=== PATIENT | male | born 1960 | race African-American/Black ===

== ENCOUNTER 2020-09-17 21:51 | Inpatient (IN) | payer OTHER ==
[~2020-09-17] VITALS: Ht 180.3 cm; Wt 96.6 kg
[2020-09-17] MEDS ORDERED: ASPIRIN 81MG TABLET PO ONE (22:15)
[2020-09-17 23:12] LABS: HEMATOCRIT. 49.1 % (42.0-52.0); HEMOGLOBIN. 16.9 g/dL (14.0-18.0); MEAN CORPUSCULAR HEMOGLOBIN 31.3 pg (28.0-32.0); MEAN CORPUSCULAR VOLUME 90.8 fL (80.0-94.0); MEAN PLATELET VOLUME 9.6 fl (7.4-10.4); PLATELET 222 x1000/uL (130-400); RED CELL DISTRIBUTION WIDTH 13.4 % (11.6-14.6)
[2020-09-17 23:19] LABS: CHLORIDE 101 mEq/L (98-107)
[2020-09-17 23:20] LABS: PLATELET ESTIMATE NORMAL
[2020-09-17] MEDS ORDERED: FUROSEMIDE 100MG/10ML VIAL IVP NR (23:30)
[2020-09-18] MEDS ORDERED: ONDANSETRON HCL 4MG/2ML INJ IV NR (00:45)
[2020-09-18] MEDS ORDERED: POTASSIUM CHLORIDE INJ 40 MEQ in DEXT 5% WATER 250 ML IV ONE (01:15)
[2020-09-18] MEDS ORDERED: AZITHROMYCIN 500 MG in DEXT 5% WATER 250 ML IV SCH (01:15)
[2020-09-18] MEDS ORDERED: CEFTRIAXONE 1 G PREMIX 50 ML IV ONE (01:15)
[2020-09-18 06:00] VITALS: BP 166/104
[2020-09-18] MEDS ORDERED: MAGNESIUM/ALUMINUM HYDROXIDE/SIMETHICONE 30ML UDC PO PRN (06:45)
[2020-09-18] MEDS ORDERED: ENOXAPARIN 40MG/0.4ML SYR SUBCUT SCH (06:45)
[2020-09-18] MEDS ORDERED: IPRATROPIUM/ALBUTEROL 0.5-3(2.5)MG/3ML NEB HHN PRN (06:45)
[2020-09-18] MEDS ORDERED: DEXTROSE 50% WATER 50ML SYRINGE IV PRN (06:45)
[2020-09-18] MEDS ORDERED: CLONIDINE 0.1MG TABLET PO PRN (06:45)
[2020-09-18] MEDS ORDERED: LORAZEPAM 2MG/ML CPJ IV PRN (06:45)
[2020-09-18] MEDS ORDERED: DOCUSATE SODIUM 100MG CAPSULE PO PRN (06:45)
[2020-09-18] MEDS ORDERED: GUAIFENESIN 200MG/10ML SUGAR FREE UDC PO PRN (06:45)
[2020-09-18] MEDS ORDERED: HYDRALAZINE 20MG/ML VIAL IV PRN (06:45)
[2020-09-18] MEDS ORDERED: ACETAMINOPHEN 325MG TABLET PO PRN (06:45)
[2020-09-18] MEDS ORDERED: DIPHENHYDRAMINE 50MG/ML VIAL IV PRN (06:45)
[2020-09-18 06:52] VITALS: BP 166/104
[2020-09-18] MEDS: BLOOD SUGAR DIAGNOSTIC STRIP TEST SCH ×4 (07:39→20:51)
[2020-09-18 08:00] VITALS: BP 163/110
[2020-09-18] MEDS: INSULIN LISPRO 100 UNITS/ML SUBCUT SCH ×4 (09:42→20:51)
[2020-09-18] MEDS: ONDANSETRON HCL 4MG/2ML INJ IV PRN ×2 (10:11→16:29)
[2020-09-18] MEDS ORDERED: ENOXAPARIN 60MG/0.6ML SYR SUBCUT NR (11:00)
[2020-09-18 12:00] VITALS: BP 165/106
[2020-09-18] MEDS: SODIUM CHLORIDE 0.9% INJ 3ML FLUSH IVF SCH ×2 (14:00→20:51)
[2020-09-18 14:42] LABS: T4 FREE 1.36 ng/dL (0.76-1.46)
[2020-09-18 15:29] LABS: CREATINE KINASE 53 IU/L (39-308)
[2020-09-18 15:30] LABS: CREATINE KINASE MB FRACTION 1.2 ng/mL (0.5-3.6)
[2020-09-18 16:00] VITALS: BP 158/103
[2020-09-18] MEDS: AMLODIPINE 10MG TABLET PO SCH (16:29)
[2020-09-18] MEDS ORDERED: IOHEXOL-350 100 ML BOTTLE ONE (16:54)
[2020-09-18 20:00] VITALS: BP 109/80
[2020-09-18] MEDS ORDERED: ENOXAPARIN 100MG/ML SYR SUBCUT SCH (23:00)
[2020-09-18] MEDS: MORPHINE SULFATE 2 MG/ML CPJ (NOT FOR IM USE) IV PRN (23:00)
[2020-09-18 23:51] LABS: CREATINE KINASE 37 IU/L (39-308)
[2020-09-19] VITALS: BP 140/95
[2020-09-19 04:00] VITALS: BP 159/91
[2020-09-19] MEDS: SODIUM CHLORIDE 0.9% INJ 3ML FLUSH IVF SCH ×2 (05:18→11:43)
[2020-09-19] MEDS: ONDANSETRON HCL 4MG/2ML INJ IV PRN ×2 (05:18→08:41)
[2020-09-19] MEDS: BLOOD SUGAR DIAGNOSTIC STRIP TEST SCH ×3 (06:31→17:38)
[2020-09-19 06:41] LABS: CHLORIDE 99 mEq/L (98-107)
[2020-09-19 06:57] LABS: HEMATOCRIT. 50.1 % (42.0-52.0); HEMOGLOBIN. 16.9 g/dL (14.0-18.0); MEAN CORPUSCULAR VOLUME 91.6 fL (80.0-94.0); MEAN PLATELET VOLUME 10.6 fl (7.4-10.4); PLATELET 205 x1000/uL (130-400); RED BLOOD CELL COUNT 5.47 mill/uL (4.7-6.1); RED CELL DISTRIBUTION WIDTH 14.2 % (11.6-14.6)
[2020-09-19 08:14] VITALS: BP 153/101
[2020-09-19] MEDS: AMLODIPINE 10MG TABLET PO SCH (08:19)
[2020-09-19] MEDS: INSULIN LISPRO 100 UNITS/ML SUBCUT SCH ×3 (08:21→17:43)
[2020-09-19] MEDS ORDERED: RIVA20TA PO (09:40)
[2020-09-19] MEDS ORDERED: DULO20CA18 PO (09:40)
[2020-09-19] MEDS ORDERED: BENA40TA9 PO (09:40)
[2020-09-19] MEDS ORDERED: INSU100I24 SQ (09:40)
[2020-09-19] MEDS ORDERED: METF-416 PO (09:40)
[2020-09-19] MEDS ORDERED: CARV12.545 PO (09:40)
[2020-09-19] MEDS ORDERED: RIVA20TA MT (09:40)
[2020-09-19] MEDS ORDERED: FURO40TA5 PO (09:40)
[2020-09-19] MEDS ORDERED: GLIM2TAB30 PO (09:40)
[2020-09-19] MEDS ORDERED: AMI2 PO (09:48)
[2020-09-19] MEDS ORDERED: MONT10TA32 PO (09:48)
[2020-09-19] MEDS ORDERED: ASPI-1497 PO (09:48)
[2020-09-19] MEDS ORDERED: AMLO10TA80 PO (09:48)
[2020-09-19] MEDS ORDERED: TRAZ-251 PO (09:48)
[2020-09-19] MEDS ORDERED: *PATIENT'S OWN MEDICATION STORAGE XX SCH (10:00)
[2020-09-19] MEDS ORDERED: POTASSIUM CHLORIDE 20MEQ TABLET SR PO SCH (10:00)
[2020-09-19] MEDS ORDERED: BENAZEPRIL 10MG TABLET PO SCH (11:00)
[2020-09-19] MEDS ORDERED: AMIODARONE HCL 200 MG TABLET PO SCH (11:00)
[2020-09-19] MEDS ORDERED: CARVEDILOL 12.5MG TABLET PO SCH (11:00)
[2020-09-19] MEDS ORDERED: ASPIRIN 81MG TABLET PO SCH (11:00)
[2020-09-19] MEDS: METFORMIN HCL 500MG TABLET PO SCH ×2 (11:34→17:41)
[2020-09-19] MEDS: FUROSEMIDE 40MG TABLET PO SCH ×2 (11:35→17:40)
[2020-09-19] MEDS: MORPHINE SULFATE 2 MG/ML CPJ (NOT FOR IM USE) IV PRN (11:43)
[2020-09-19] MEDS ORDERED: DULOXETINE HCL 20MG DR CAPSULE PO SCH (12:00)
[2020-09-19] MEDS ORDERED: GLIMEPIRIDE 2MG TABLET PO SCH (12:20)
[2020-09-19 12:41] VITALS: BP 155/101
[2020-09-19 14:25] LABS: PLATELET ESTIMATE NORMAL
[2020-09-19 16:00] VITALS: BP 136/86
[2020-09-19] MEDS ORDERED: RIVAROXABAN 20 MG TABLET PO SCH (17:00)
[2020-09-19] MEDS ORDERED: MONTELUKAST SODIUM 10MG TABLET PO SCH (17:00)
[2020-09-19 17:01] VITALS: BP 135/87
[2020-09-19] MEDS ORDERED: TRAZODONE HCL 50MG TABLET PO SCH (21:00)
[2020-09-19] MEDS ORDERED: INSULIN GLARGINE UD 100 UNITS/ML SYR SUBCUT SCH (22:00)
== END 2020-09-19 19:00 | disposition left against medical advice (07) | DRG 133 ==
LOC: ER 21:51 → 6WST 09-18 01:07 → ENRESERV 09-18 04:41
PROVIDERS: ADMIT Internal Medicine; ATTEND Internal Medicine
DX: J96.00 Acute respiratory failure, unspecified whether with hypoxia or hypercapnia (principal); J44.9 Chronic obstructive pulmonary disease, unspecified; I11.0 Hypertensive heart disease with heart failure; I50.9 Heart failure, unspecified; K76.89 Other specified diseases of liver; E87.6 Hypokalemia; N28.1 Cyst of kidney, acquired; F14.10 Cocaine abuse, uncomplicated; E11.9 Type 2 diabetes mellitus without complications; K44.9 Diaphragmatic hernia without obstruction or gangrene; Z76.5 Malingerer [conscious simulation]; Z82.49 Family history of ischemic heart disease and other diseases of the circulatory system; Z82.5 Family history of asthma and other chronic lower respiratory diseases; Z86.711 Personal history of pulmonary embolism; Z95.828 Presence of other vascular implants and grafts; Z87.891 Personal history of nicotine dependence; Z86.718 Personal history of other venous thrombosis and embolism; Z79.84 Long term (current) use of oral hypoglycemic drugs; Z79.899 Other long term (current) drug therapy; Z79.01 Long term (current) use of anticoagulants
CPT/HCPCS: 36415; 71045; 71275; 74176; 80053; 80061; 82550; 82553; 82962; 83036; 83880; 84439; 84443; 84484; 85025; 85379; 93005; 99285; J0456; J0696; J1650; J1815; J1940; J2270; J2405; J3480; J7060; Q9967